=== PATIENT | male | born 1985 | race Two or more races ===

== ENCOUNTER 2020-02-20 05:51 | Day surgery (SDC) | payer BC ==
--- NOTE | 2020-02-18 13:45 | Diagnostic Imaging Report ---
Indication: Cough Technique: 2 views of the chest Comparison: None Findings: Lungs and pleural spaces are clear. The heart size is normal. The bones are unremarkable. No significant interim change. Impression: Negative
[2020-02-20] VITALS (11 sets, daily range): BP systolic 111–135; BP diastolic 49–77
[~2020-02-20] VITALS: Ht 175.3 cm; Wt 70.3 kg
[~2020-02-20 05:51] MED LIST: VITAMIN C500 M1 ORAL; ZINC50 M1 ORAL; vitamin D PO
[2020-02-20] MEDS ORDERED: oxyCONTIN 20mg tab ORAL ONE (06:00)
[2020-02-20] MEDS ORDERED: celeBREX 200mg Cap **SURGERY PATIENTS ONLY ORAL ONE (06:00)
[2020-02-20] MEDS ORDERED: ceFAZolin 1gm IVPB IVPB ONE ×2 (06:00)
[2020-02-20] MEDS ORDERED: Midazolam 2mg/2ml Inj ONE (06:57)
[2020-02-20] MEDS ORDERED: fentaNYL 100 mcg/2 mL IV ONE (06:58)
[2020-02-20] MEDS ORDERED: Lidocaine 1% MPF 10mg/ml 5ml ONE (06:58)
[2020-02-20] MEDS ORDERED: Ketorolac 30mg Inj ONE ×2 (06:59→07:02)
[2020-02-20] MEDS ORDERED: LR 1000ml ONE (07:00)
[2020-02-20] MEDS ORDERED: Sterile Water Irrig 1000ml IRRIG ONE (07:00)
[2020-02-20] MEDS ORDERED: Bupivacaine 0.25% Inj 30ml INJ ONE (07:02)
[2020-02-20] MEDS ORDERED: Duramorph PF 5mg/10ml amp ONE (07:02)
[2020-02-20] MEDS ORDERED: Lidocaine 1% 10mg/ml/Epi 0.005mg/ml 30ml vial INJ ONE (07:02)
[2020-02-20] MEDS ORDERED: Kenalog-40 1ml Vial ONE (07:02)
--- NOTE | 2020-02-20 07:29 | Pre-Procedure Note/Attestation ---
Pre-Procedure Note/Attestation Complete Prior to Procedure Planned Procedure: right Procedure Narrative: knee arthroscopy removal loose bodies, possible menisectomy, pssible chondroplasty Indications for Procedure Pre-Operative Diagnosis: right knee internal derangement Attestation I attest that I discussed the nature of the procedure; its benefits; risks and complications; and alternatives (and the risks and benefits of such alternatives ), prior to the procedure, with the patient (or the patient's legal brand representative). I attest that, if there was a reasonable possibility of needing a blood transfusion, the patient (or the patient's legal brand representative) was given the [facility] standardized written summary, pursuant to the Maurice Jamison Blood Safety Act ([place] Health and Safety Code # 1645, as amended). I attest that I re-evaluated the patient just prior to the surgery and that there has been no change in the patient's H&P, except as documented below: Golden Tapia MD Feb 20, 2020 07:28
--- NOTE | 2020-02-20 07:29 | Operative Note - PDOC ---
Operative Note Operative Note Pre-op Diagnosis: right knee internal derangement Procedure: see op report Post-op Diagnosis: same as pre-op plus Operative Findings: consistent w/pre-op dx studies Anesthesia: MAC Specimen: none Complications: none Condition: stable Estimated Blood Loss: none Implant(s) used?: No Golden Tapia MD Feb 20, 2020 07:29
[2020-02-20] MEDS ORDERED: HYDROcodone/Acetamin 5/325 tab ORAL PRN (07:30)
[2020-02-20] MEDS ORDERED: Tylenol #3 tab (300mg/30mg) ORAL PRN (07:30)
[2020-02-20] MEDS ORDERED: D5 1/2NS 1,000 ML IV SCH (07:30)
[2020-02-20] MEDS ORDERED: HYDROmorphone 1mg/ml Carpuject SUBQ PRN (07:30)
[2020-02-20] MEDS ORDERED: NS Irrig 4000ml IRRIG ONE ×4 (07:39→08:05)
--- NOTE | 2020-02-20 08:00 | Anethesia Preoperative Eval ---
Anesthesia Pre-op PMH/ROS General Date of Evaluation: Feb 20, 2020 Time of Evaluation: 07:12 Anesthesiologist: Warren ASA Score: ASA 2 Mallampati Score Class I : Soft palate, uvula, fauces, pillars visible Class II: Soft palate, uvula, fauces visible Class III: Soft palate, base of uvula visible Class IV: Only hard plate visible Mallampati Classification: Class II Surgeon: Willie Diagnosis: R knee pain Surgical Procedure: R knee scope Anesthesia History: none Family History: no anesthesia problems Allergies: Coded Allergies: No Known Allergies (Unverified , 02/17/20) Medications: see eMAR Patient NPO?: Yes Past Medical History Cardiovascular: Denies: HTN, CAD, AR, valve dz, arrhythmia, other Pulmonary: Denies: asthma, COPD, [place]RIAN[place], other Gastrointestinal/Genitourinary: Reports: GERD; Denies: CRI, ESRD, other Neurologic/Psychiatric: Denies: dementia, CVA, depression/anxiety, TIA, other Endocrine: Denies: DM, hypothyroidism, steroids, other HEENT: Denies: cataract (L), cataract (R), glaucoma, [place] (L), [place] (R), other Hematology/Immune: Denies: anemia, DVT, bleeding disorder, other Musculoskeletal/Integumentary: Denies: OA, RA, DJD, DDD, edema, other PMH Narrative: as above PSxH Narrative: Knee arthroscopy Anesthesia Pre-op Phys. Exam Physician Exam Last Vital Signs Date Time Temp Pulse Resp B/P (MAP) Pulse Ox O2 Delivery O2 Flow Rate FiO2 02/20/20 06:25 97.3 61 18 135/77 99 Room Air Constitutional: NAD Neurologic: CN 2-12 intact Cardiovascular: RRR, no M/R/G Respiratory: CTA Gastrointestinal: S/NT/ND Airway Exam Mallampati Score: Class II MO: full Neck: flexible ROM: full Teeth: intact Dentures: no upper, no lower Anesthesia Pre-op A/P Labs see chart Studies Pre-op Studies: EKG - SB Risk Assessment & Plan Assessment: ASA 2 Plan: GA with LMA Status Change Before Surgery: No Pre-Antibiotics Drug: Ancef 1gr. Given Within 1 Hr of Incision: Yes Time Given: 07:42 Garcia Kelley MD Feb 20, 2020 08:00
[2020-02-20] MEDS ORDERED: LR 1000ml 1,000 ML IVLG SCH (08:01)
[2020-02-20] MEDS ORDERED: Meperidine 25mg/0.5ml Inj (FOR RIGORS ONLY) IV PRN (08:15)
[2020-02-20] MEDS ORDERED: Metoclopramide 10mg/2ml Inj IVP PRN (08:15)
[2020-02-20] MEDS ORDERED: DiphenhydrAMINE 50mg/ml Inj IVP PRN (08:15)
--- NOTE | 2020-02-20 08:32 | Immediate Post-Op Evaluation ---
Immediate Post-Op Evalulation Immediate Post-Op Evalulation Procedure: R knee arthroscopy, meniscectomy Date of Evaluation: Feb 20, 2020 Time of Evaluation: 08:31 IV Fluids: 800 Blood Products: none Estimated Blood Loss: min Urinary Output: none Blood Pressure Systolic: 120 Blood Pressure Diastolic: 76 Pulse Rate: 52 Respiratory Rate: 18 O2 Sat by Pulse Oximetry: 99 Temperature (Fahrenheit): 97.6 Pain Score (1-10): 1 Nausea: No Vomiting: No Complications none Patient Status: reacts, patent Hydration Status: adequate Garcia Kelley MD Feb 20, 2020 08:32
--- NOTE | 2020-02-20 09:57 | 48 Hour Post Anesthesia Eval ---
Post Anesthesia Evaluation Procedure: R knee arthroscopy, meniscectomy Date of Evaluation: Feb 20, 2020 Time of Evaluation: 09:56 Blood Pressure Systolic: 116 0: 72 Pulse Rate: 62 Respiratory Rate: 18 Temperature (Fahrenheit): 97.6 O2 Sat by Pulse Oximetry: 98 Airway: patent Nausea: No Vomiting: No Pain Intensity: 1 Hydration Status: adequate Cardiopulmonary Status: stable Mental Status/LOC: patient returned to baseline Follow-up Care/Observations: n/a Post-Anesthesia Complications: none Follow-up care needed: ready to discharge Garcia Kelley MD Feb 20, 2020 09:57
--- NOTE | 2020-02-20 16:15 | Operative Note - Dictated ---
DATE OF OPERATION: 02/20/2020 PREOPERATIVE DIAGNOSES: 1. Right knee internal derangement secondary to intraarticular loose body. 2. Right knee arthrosis. POSTOPERATIVE DIAGNOSES: 1. Intraarticular loose bodies x2. 2. Lateral meniscus tear. 3. Lateral compartment full-thickness chondral damage, lateral femoral condyle, and lateral tibial plateau. 4. Grade 4 chondral damage, slightly improved. 5. Hypertrophic synovial tissue. PROCEDURES: 1. Right knee arthroscopy and removal of intraarticular loose bodies (2 x 4 mm and 3 x 4 mm). 2. Partial lateral meniscectomy. 3. Lateral and patellofemoral compartment chondroplasty. 4. Synovectomy, medial and lateral patellofemoral compartment. SURGEON: Golden Tapia MD. ANESTHESIA: MAC. INDICATION FOR PROCEDURE: Patient is a pleasant gentleman who has had progressive right knee pain. Had x-rays consistent with intraarticular loose bodies and mechanical symptoms and pretty advanced arthritis on radiograph. Had an MRI of the right knee and he elected to undergo right knee arthroscopy with removal of intra-articular loose bodies. Risks, limitations, expectations, and complications of procedure were discussed in detail. All questions were addressed. DESCRIPTION OF PROCEDURE: After informed consent was obtained, patient was brought to the operating room. Patient was placed under general anesthesia. Right leg was prepped and draped in a sterile manner. Time-out was performed. Inferolateral stab incision was then made. Trocar introduced into the knee joint. Systematic tour of the knee was performed. It was very difficult to visualize patellofemoral compartment secondary to hypertrophic synovial tissue. Medial compartment was entered and the hypertrophic synovial tissue as well. Medial working portal was established. Synovectomy was began in the medial compartment, extended into intercondylar notch and lateral compartment. Once that was done, the medial compartment was entered. There was no significant meniscal or chondral damage. The ACL was probed, noted to be grossly intact. There was some tendinosis. Lateral compartment was entered. There was a tear of the lateral meniscus. Partial meniscectomy was performed. Of note, there was grade 3 grade 4 chondral damage in the femoral condyle as well as tibial plateau. Gentle chondroplasty was performed. At this point, synovectomy was extended into the patellofemoral compartment. The first of 2 intra-articular loose bodies were identified under lateral gutter. Attempts to mobilize them into the suprapatellar pouch and medial compartment was unsuccessful, therefore third lateral skin incision was then made and the loose body was removed. Once this was done, a diagnostic of the knee was then again performed. At this point, there was concern that there was another intraarticular loose body in the superior medial pouch. This was palpated using the instrument, felt to be hard. This second loose body was mobilized and removed again through the lateral portal. Once this was done, the instruments were removed. Portals sites were closed with 3-0 Monocryl sutures. Steri-Strips and a sterile dressing were applied. ESTIMATED BLOOD LOSS: None. COMPLICATIONS: None. SPECIMENS: Include 2 intraarticular loose bodies 3 x 4 mm and 4 x 4 mm. IMPLANTS: None. Golden Tapia M.D. DR: TIERNEY JOB#: [id number] CC:
== END 2020-02-20 09:55 | disposition home or self-care (01) ==
LOC: SUR 05:51
DX: M23.41 Loose body in knee, right knee (principal); S83.281A Other tear of lateral meniscus, current injury, right knee, initial encounter; M67.261 Synovial hypertrophy, not elsewhere classified, right lower leg; M94.8X6 Other specified disorders of cartilage, lower leg; K21.9 Gastro-esophageal reflux disease without esophagitis; X58.XXXA Exposure to other specified factors, initial encounter; Y92.9 Unspecified place or not applicable
CPT/HCPCS: 29874; 29876; 29881; 71046; 94003; J0690; J1885; J2250; J2405; J2704; J3010; J3301; J3490; J7120; 94150